=== PATIENT | male | born 1975 | race Caucasian/White ===

== ENCOUNTER 2018-11-21 17:15 | Emergency (ER) | payer BC ==
[2018-11-21] MEDS ORDERED: PROPARACAINE HCL OPTH 15ML BTL OPTH ONE ×2 (17:33→17:36)
[2018-11-21] MEDS ORDERED: PREDNISOLONE ACETATE 1% OPTH 10ML BOTTLE OPTH ONE (17:48)
--- NOTE | 2018-11-21 17:48 | Emergency Department Record ---
History of Present Illness - General Stated complaint: EYE INJURY Time Seen by Provider: 11/21/18 17:33 Source: Patient, Family Mode of Arrival: Ambulatory Limitations: No limitations - History of Present Illness Initial comments: 43 yo male presents with a right eye injury. He was unstrapping a bungy on a ladder and the bungy hit his right eye. He has pain and blurry vision. He does not wear contacts. The injury occurred at 2:30 He states is blurry vision is mild with a "haziness" to borders of objects he is looking at. No blood thinners. No contacts. No history of eye surgery. MD chief complaint: Eye pain, Eye injury -: Hour(s) (3) Location: Right eye Place: Home If Injury: Direct trauma Eye Symptoms: Blurry vision Severity: Mild If Pain, Quality: Aching Consistency: Constant Context: Trauma Treatments Prior to Arrival: Eyepatch - Related Data Visual acuity (L) = 20/: 40 Visual acuity (R) = 20/: 30 With correction: No Home Medications Medication Instructions Recorded Confirmed Last Taken No Home Med [NO HOME MEDS] 11/21/18 11/21/18 Unknown Allergies Allergy/AdvReac Type Severity Reaction Status Date / Time No Known Allergies Allergy PT UNSURE Verified 11/21/18 17:38 OF REACTION Review of Systems Constitutional: Denies: Chills, Fever, Malaise, Weakness Eyes: Reports: Eye pain, Photophobia (mild), Vision change (mild blurriness). Denies: Eye discharge ENT: Denies: Congestion, Throat pain Respiratory: Denies: Cough Cardiovascular: Denies: Chest pain Endocrine: Denies: Fatigue Gastrointestinal: Denies: Abdominal pain, Diarrhea, Nausea, Vomiting Genitourinary: Denies: Dysuria, Frequency Musculoskeletal: Denies: Arthralgia, Myalgia Skin: Denies: Bruising, Change in color, Rash Neurological: Denies: Headache Psychiatric: Denies: Anxiety Hematological/Lymphatic: Denies: Easy bleeding, Easy bruising Physical Exam - General General Appearance: Alert, Oriented x3, Cooperative, No acute distress Limitations: No limitations - Head Head exam: Atraumatic, Normal inspection - Eye Eye exam: Conjunctival injection, EOMI, Periorbital tenderness (mild). negative: Normal appearance, Periorbital swelling Pupils: Irregular, Unequal Visual acuity (L) = 20/: 40 Visual acuity (R) = 20/: 30 - ENT ENT exam: Normal exam Ear exam: Normal external inspection Nasal Exam: Normal inspection Mouth exam: Normal external inspection - Neurological Neurological exam: Alert, Oriented X3 - Psychiatric Psychiatric exam: Normal affect, Normal mood - Skin Skin exam: Dry, Intact, Normal color, Warm Course - Reevaluation(s) Reevaluation #1: 11/21/18 17:53 Visual acuity is 20/30 in the right eye and 20/40 in the left unaffected eye The eye was examined with slit lamp after stain No stain uptake to suggest significant abrasion No streaming to suggest leak or ruptured globe The EOM are intact and without limitation There is a small dependent hyphema The pupil is mildly oblong in shape compared to the left that is round Conjunctival injection noted without subconjuctival bleeding. I SW Dr Hodge of ophthalmology. He recommend a cycloplegic and send directly to his office to be seen A shield was placed and the patient was sent directly to see Dr Hodge. 11/21/18 18:17 Disposition Disposition: Discharge Clinical Impression: Eye injury Qualifiers: Encounter type: initial encounter Laterality: right Qualified Code(s): S05.91XA - Unspecified injury of right eye and orbit, initial encounter Hyphema Qualifiers: Laterality: right Qualified Code(s): H21.01 - Hyphema, right eye Disposition: Home, Self-Care Condition: (1) Good Instructions: Hyphema (ED) Additional Instructions: Go directly to Dr Hodge office Keep the eye covered and protected Forms: Patient Portal Access Time of Disposition: 18:11 Quality - Quality Measures Quality Measures: N/A - Blood Pressure Screening Does Patient Have Any of the Following: No Blood Pressure Classification: Pre-Hypertensive BP Reading Systolic Measurement: 134 Diastolic Measurement: 74 Screening for High Blood Pressure: < Pre-Hypertensive BP, F/U Documented > [G8950] Pre-Hypertensive Follow-up Interventions: Referral to alternative/primary care provider.
[2018-11-21] MEDS ORDERED: HOMATROPINE HBR OPTH STA (17:52)
[2018-11-21] MEDS ORDERED: OPTH OPTH STA (17:52)
[2018-11-21] MEDS ORDERED: HOMATROPINE HBR OPTH SCH (18:00)
[2018-11-21] MEDS ORDERED: OPTH OPTH SCH (18:00)
== END 2018-11-21 18:15 | disposition home or self-care (01) ==
LOC: ER 17:15
DX: S05.11XA Contusion of eyeball and orbital tissues, right eye, initial encounter (principal); S00.201A Unspecified superficial injury of right eyelid and periocular area, initial encounter; H53.8 Other visual disturbances; W22.8XXA Striking against or struck by other objects, initial encounter; Y92.009 Unspecified place in unspecified non-institutional (private) residence as the place of occurrence of the external cause
CPT/HCPCS: 99283; 99284

== ENCOUNTER 2018-12-19 22:31 | Emergency (ER) | payer BC ==
[2018-12-19] MEDS ORDERED: IBUPROFEN 400 MG TABLET PO ONE (22:39)
--- NOTE | 2018-12-19 22:44 | Emergency Department Record ---
History of Present Illness - General Chief Complaint: Neck Injury/Pain Stated Complaint: NECK PAIN Time Seen by Provider: 12/19/18 22:33 Source: Patient Mode of Arrival: Ambulatory Limitations: No limitations - History of Present Illness Initial Comments: 43 yo male presents to ED for evaluation of midline neck pain symptoms following injury while swimming yesterday. Patient reports that he was swimming in a pool toward the end of the pool, lifted his head resulting in injury to the head without LOC. Patient reports that he got our of the pool, sat down, reports that he felt fine after injury. Patient reports mild-moderate neck pain following his injury that began today, worse with ROM to the right. Patient has not taken anything for his pain symptoms, denies numbness, tingling, or extremity weakness symptoms. MD Complaint: Neck injury, Neck pain Onset/Timin -: Days(s) Place: Street/outdoors Severity: Moderate Quality: Aching Consistency: Intermittent Worsens With: Movement of neck Associated Symptoms: None Treatments Prior to Arrival: None - Related Data Allergies Allergy/AdvReac Type Severity Reaction Status Date / Time No Known Allergies Allergy PT UNSURE Verified 11/21/18 17:38 OF REACTION Review of Systems Constitutional: Denies: Chills, Fever, Malaise, Night sweats Eyes: Denies: Eye discharge, Eye pain ENT: Denies: Congestion, Ear pain, Epistaxis Respiratory: Denies: Cough, Dyspnea Cardiovascular: Denies: Chest pain, Dyspnea on exertion Endocrine: Denies: Fatigue, Heat or cold intolerance Gastrointestinal: Denies: Abdominal pain, Nausea, Vomiting Genitourinary: Denies: Incontinence, Retention Musculoskeletal: Reports: Neck pain. Denies: Arthralgia, Back pain, Gout, Joint swelling Skin: Denies: Bruising, Change in color Neurological: Denies: Abnormal gait, Confusion, Headache, Seizure Psychiatric: Denies: Anxiety Hematological/Lymphatic: Denies: Anemia, Blood Clots Past Medical History - SOCIAL HISTORY Smoking Status: Never smoker Drug Use: None - RESPIRATORY Hx Respiratory Disorders: No - CARDIOVASCULAR Hx Cardio Disorders: No - NEURO Hx Neuro Disorders: No - GI Hx GI Disorders: No - Hx Genitourinary Disorders: No - ENDOCRINE Hx Endocrine Disorders: No - MUSCULOSKELETAL Hx Musculoskeletal Disorders: No - PSYCH Hx Psych Problems: No - HEMATOLOGY/ONCOLOGY Hx Hematology/Oncology Disorders: No Physical Exam - General General Appearance: Alert, Oriented x3, Cooperative, No acute distress Limitations: No limitations - Head Head exam: Atraumatic, Normocephalic, Normal inspection Head exam detail: negative: Abrasion, Contusion, Rodriguez's sign, General tenderness, Hematoma, Laceration - Eye Eye exam: Normal appearance. negative: Conjunctival injection, Periorbital swelling, Periorbital tenderness, Scleral icterus - ENT Ear exam: negative: Auricular hematoma, Auricular trauma Nasal Exam: negative: Active bleeding, Discharge, Dried blood, Foreign body Mouth exam: negative: Drooling, Laceration, Muffled voice, Tongue elevation - Neck Neck exam: Tenderness (Mild TTP midline, FROM on examination.). negative: Meningismus - Respiratory Respiratory exam: Normal lung sounds bilaterally. negative: Rales, Respiratory distress, Rhonchi, Stridor - Cardiovascular Cardiovascular Exam: Regular rate, Normal rhythm, Normal heart sounds - GI/Abdominal GI/Abdominal exam: Soft. negative: Rebound, Rigid, Tenderness - Rectal Rectal exam: Deferred - exam: Deferred - Extremities Extremities exam: Normal inspection. negative: Calf tenderness, Pedal edema, Tenderness - Back Back exam: Denies: CVA tenderness (R), CVA tenderness (L) - Neurological Neurological exam: Alert, Normal gait, Oriented X3 - Psychiatric Psychiatric exam: Normal affect, Normal mood - Skin Skin exam: Normal color. negative: Abrasion Type of lesion: negative: abrasion Course Vital Signs 12/19/18 22:36 Temperature 98.0 F Pulse Rate [ 68 Left] Respiratory 16 Rate Blood Pressure 132/88 [Left] Pulse Ox 98 - Reevaluation(s) Reevaluation #1: 12/19/18 23:00 Cervical Spine: No acute fracture or subluxation Patient was updated on preliminary results pending radiologist review in the morning, patient appears stable for discharge at this time with instructions for symptomatic are as directed. All questions were answered prior to discharge as well. Disposition Disposition: Discharge Clinical Impression: Cervical strain, acute Qualifiers: Encounter type: initial encounter Qualified Code(s): S16.1XXA - Strain of muscle, fascia and tendon at neck level, initial encounter Disposition: Home, Self-Care Condition: (2) Stable Instructions: Cervical Sprain (ED) Additional Instructions: Return to ED if your symptoms worsen or if you have any concerns. [facility] as directed. Follow-up with your family doctor in 3-5 days as directed. Forms: Patient Portal Access Time of Disposition: 22:45 Quality - Quality Measures Quality Measures: N/A - Blood Pressure Screening Does Patient Have Any of the Following: No Blood Pressure Classification: Pre-Hypertensive BP Reading Systolic Measurement: 132 Diastolic Measurement: 88 Screening for High Blood Pressure: < Pre-Hypertensive BP, F/U Documented > [G8950] Pre-Hypertensive Follow-up Interventions: Referral to alternative/primary care provider.
--- NOTE | 2018-12-21 07:57 | RADIOLOGY REPORT ---
EXAM: CERVICAL SPINE COMPLETE HISTORY: HIT HEAD ON SIDE OF POOL WHILE SWIMMING. NECK PAIN UPON TURNING HEAD RIGHTWARD. TECHNIQUE: AP, lateral, both oblique and odontoid views of the cervical spine are obtained. Comparison: None. FINDINGS: There is normal bone mineralization. The body of C7 and the odontoid process are visualized. The vertebral bodies are normal in alignment and height. No acute fracture, destructive bone lesion or prevertebral soft tissue swelling is seen. There are mild hypertrophic degenerative changes of the atlantodental joint. The intervertebral disk heights are maintained. No gross marginal end plate spurring. The uncovertebral joints are maintained. Mild hypertrophic degenerative changes of the C3-C4 facet joints questioned. The facet joints are otherwise grossly maintained. There is questionable minimal bilateral neural foraminal narrowing at the C3-C4 level due to facet joint spurring. The neural foramina are otherwise widely patent. IMPRESSION: NO EVIDENCE OF ACUTE OSSEOUS OR LIGAMENTOUS ABNORMALITY. MINOR DEGENERATIVE CHANGES, DISCUSSED ABOVE. JOB NUMBER: [id number] [facility]
== END 2018-12-19 23:05 | disposition home or self-care (01) ==
LOC: ER 22:31
DX: S16.1XXA Strain of muscle, fascia and tendon at neck level, initial encounter (principal); W22.8XXA Striking against or struck by other objects, initial encounter; Y93.11 Activity, swimming; Y92.89 Other specified places as the place of occurrence of the external cause
CPT/HCPCS: 72050; 99283